=== PATIENT | female | born 1970 | race Asian ===

== ENCOUNTER 2021-01-08 12:49 | Emergency (ER) | payer OTHER ==
[~2021-01-08] VITALS: Ht 152.4 cm; Wt 52.2 kg
[2021-01-08 13:06] VITALS: TEMP 99.1
[2021-01-08 14:06] VITALS: BP 105/60
== END 2021-01-08 14:08 | disposition home or self-care (01) ==
LOC: ED 12:49
DX: S13.4XXA Sprain of ligaments of cervical spine, initial encounter (principal); V43.53XA Car driver injured in collision with pick-up truck in traffic accident, initial encounter; Y92.410 Unspecified street and highway as the place of occurrence of the external cause
CPT/HCPCS: 99282; 99283